=== PATIENT | male | born 1930 | race Caucasian/White ===

== ENCOUNTER → 2016-12-08 | Outpatient (CLI) | payer MEDICARE, OTHER, MEDICAID ==
[~2016-12-08] VITALS: Ht 162.6 cm; Wt 136.0 kg
[~2016-12-08] MED LIST: ACET-732 PO; ALLO300T74 PO; ATRO2DRO4 LEFT EYE; BISA10SU22 RECTALLY; BRIM5DRO4 LEFT EYE; BUME1TAB16 PO; CARV12.52 PO; ESCI20TA30 PO; FOLI-40 PO; INSU100V SQ; IPRA3AMP AEROSOL; LATA2.5D6 RIGHT EYE; LEVE500T32 PO; LORA0.5T2 PO; LORA1TAB3 PO; MAGN400O4 PO; NAPR500T PO; NITR0.4T38 SL; OMEP40CA52 PO; QUET50TA PO; REGADENOSON 0.4mg/5ml INJECTION IV ONE; SALINE FLUSH 10ml SYRINGE ONE; SIMV40TA5 PO; TAMS0.4C47 PO
--- NOTE | 2016-12-14 16:39 | ESTF ---
DATE OF PROCEDURE 12/08/2016 PROCEDURE Lexiscan Myoview. INDICATION Code is I25.10. IMPRESSION 1. Baseline EKG shows ventricular paced rhythm. 2. He tolerated Lexiscan without difficulty. 3. Hemodynamic response to Lexiscan was appropriate. 4. There were no new EKG changes. 5. There were no arrhythmias. 6. 34.3 mCi of Myoview was given for rest images and 32.7 mCi for stress images. 7. Nuclear perfusion images revealed inferior ischemia versus tissue attenuation. 8. Quantitative ejection fraction is measured at 46%. This was a technically difficult study. [facility]
== END ==
LOC: IMA 12:03
PROVIDERS: ATTEND Internal Medicine Cardiovascular Disease
DX: I25.10 Atherosclerotic heart disease of native coronary artery without angina pectoris (principal); R94.39 Abnormal result of other cardiovascular function study
CPT/HCPCS: 78452; 93017; A9502; J2785

== ENCOUNTER → 2016-12-15 | Outpatient (CLI) | payer MEDICARE, OTHER, MEDICAID ==
[~2016-12-15] MED LIST changes: -REGADENOSON 0.4mg/5ml INJECTION IV ONE; -SALINE FLUSH 10ml SYRINGE ONE
--- NOTE | 2016-12-16 07:46 | ECHOF ---
DATE OF PROCEDURE December 15, 2016 This is a two-dimensional echo with spectral Doppler, color-flow and M-mode. It was obtained in a patient with coronary artery disease, hypertension and pacemaker. This is a technically very difficult study and limited information can be obtained from this echo. Left atrium appears to be mildly dilated. Left ventricle end-diastolic dimension is normal. Left ventricular wall thickness appears to be normal. LV systolic function is grossly normal with ejection fraction of about 55%. Right atrium is normal. Right ventricle is normal. Mitral valve was not visualized. However, Doppler studies indicate trace of mitral regurgitation. Aortic valve was not visualized. Tricuspid valve shows no tricuspid regurgitation. Pulmonary valve was not visualized. There is no pericardial effusion. IMPRESSION 1. Technically very difficult study. 2. Normal LV systolic function with ejection fraction of 55%. 3. Left atrial dilation. 4. Trace of mitral regurgitation. [facility]
== END ==
LOC: IMA 13:13
PROVIDERS: ATTEND Internal Medicine Cardiovascular Disease
DX: I10 Essential (primary) hypertension (principal); I51.7 Cardiomegaly; I25.10 Atherosclerotic heart disease of native coronary artery without angina pectoris
CPT/HCPCS: 93306